=== PATIENT | female | born 1995 | race Caucasian/White ===

== ENCOUNTER 2017-03-12 21:01 | Emergency (ER) | payer OTHER ==
[2017-03-12 21:10] VITALS: O2SAT 97
[2017-03-12] MEDS ORDERED: NS 1,000 ML IV ONE (21:27)
[2017-03-12] MEDS ORDERED: fentaNYL 100 MCG/2 ML INJ IVP ONE (21:27)
--- NOTE | 2017-03-12 21:27 | EDPHY ---
H & P Time Seen by Provider: 03/12/17 21:15 HPI/ROS: CHIEF COMPLAINT: Right lower quadrant pain HISTORY OF PRESENT ILLNESS: Patient is a 21-year-old female who presents emergency department with right lower quadrant pain starting 1 and 0.5 hours ago. The patient states she has had mild nausea with no vomiting. No diarrhea. No fevers or chills. Normal appetite. No dysuria or frequency. Patient states that she played golf earlier today but did not noticed that she injured herself. She states her last menstrual period was yesterday in a month prior to that. She is on control. She has had no vaginal discharge. REVIEW OF SYSTEMS: My complete review of systems is negative except as mentioned in the HPI. Past Medical/Surgical History: Negative Past surgical history: Negative Social history: The patient is a student at [employer] Smoking Status: Never smoked Physical Exam: Vitals noted. Afebrile. GENERAL: Well-appearing, in no acute distress, alert. HEENT: Eyes normal to inspection, normal pharynx, no signs of dehydration. NECK: No thyromegaly, no lymphadenopathy, supple. RESPIRATORY: Clear to auscultation bilaterally, no rales, rhonchi or wheezing. CVS: Regular rate and rhythm, no rubs, murmurs, or gallops. ABDOMEN: Soft, mild right lower quadrant tenderness to palpation. No rebound or guarding. Nondistended, no organomegaly. BACK: Normal to inspection, no CVA tenderness. SKIN: Normal color, no rash, warm, dry. No pallor. EXTREMITIES: No pedal edema, no calf tenderness, no Homans sign or cords, no joint swelling. NEURO/PSYCH: Alert and oriented x3, normal mood and affect, normal motor sensory exam. No obvious cranial nerve deficit. Constitutional: Initial Vital Signs Temperature (C) 37 C 03/12/17 21:07 Heart Rate 70 03/12/17 21:07 Respiratory Rate 20 03/12/17 21:07 Blood Pressure 130/81 H 03/12/17 21:07 O2 Sat (%) 97 03/12/17 21:07 O2 Delivery Mode Room Air Allergies/Adverse Reactions: No Known Allergies Allergy (Unverified 03/12/17 21:06) Medical Decision Making - Diagnostics Imaging Results: Imaging Impressions Abdomen Ultrasound 03/12/17 21:28 Impression: 1. Normal pelvic ultrasound. 2. Normal ultrasound right lower quadrant with visualization of a normal appendix. Findings discussed with Brigitte Flores M.D. at 22:30 hour, 03/12/2017. Pelvic/Renal Ultrasound 03/12/17 21:28 Impression: 1. Normal pelvic ultrasound. 2. Normal ultrasound right lower quadrant with visualization of a normal appendix. Findings discussed with Brigitte Flores M.D. at 22:30 hour, 03/12/2017. ED Course/Re-evaluation: In the emergency department I discussed possible etiologies with the patient. I answered all her questions. Laboratory studies and ultrasound were ordered. Patient's CBC was unremarkable. White count was normal. Chemistry panel is unremarkable. is negative. Ultrasound of right lower quadrant and pelvis: Please refer the dictated report. I discussed the results with Dr. De Jesus. There is a normal appearing appendix. The ovaries normal. No torsion. On recheck the patient still mild right lower quadrant tenderness palpation. On repeat exam there was no rebound or guarding. Patient was given Toradol 30 mg IV and Percocet 2 tablets orally. I am awaiting UA results. Patient feels comfortable with the plan for discharge. The patient was given warnings prior to leaving. She is aware of the limitations of the studies thus far. She will be recheck tomorrow. If her symptoms worsen she will return sooner. Differential Diagnosis: My differential includes but is not limited to appendicitis, ovarian cyst, ovarian torsion, , ectopic , urinary tract infection, pyelonephritis, kidney stone, small-bowel obstruction, perforation - Data Points Laboratory Results: Laboratory Results 03/12/17 21:30 03/12/17 21:30 03/12/17 03/12/17 03/12/17 21:30 21:30 21:30 WBC RBC Hgb Hct MCV MCH MCHC RDW Plt Count MPV Neut % (Auto) Lymph % (Auto) [place] % (Auto) Eos % (Auto) Baso % (Auto) Nucleat RBC Rel Count Absolute Neuts (auto) Absolute Lymphs (auto) Absolute Monos (auto) Absolute Eos (auto) Absolute Basos (auto) Absolute Nucleated RBC Immature Gran % Immature Gran # Sodium 138 mEq/L mEq/L (134-144) Potassium 3.7 mEq/L mEq/L (3.5-5.2) Chloride 104 mEq/L mEq/L (97-110) Carbon Dioxide 22 mEq/l mEq/l (22-31) Anion Gap 12 mEq/L mEq/L (8-16) BUN 12 mg/dL mg/dL (7-23) Creatinine 0.8 mg/dL mg/dL (0.6-1.0) Estimated GFR > 60 Glucose 83 mg/dL mg/dL (70-100) Calcium 9.7 mg/dL mg/dL (8.5-10.4) Beta HCG, Qual NEGATIVE Urine Color YELLOW Urine Appearance MODERATELY TURBID Urine pH 7.0 (5.0-7.5) Ur Specific [place] 1.014 (1.002-1.030) Urine Protein NEGATIVE (NEGATIVE) Urine Ketones NEGATIVE (NEGATIVE) Urine Blood NEGATIVE (NEGATIVE) Urine Nitrate NEGATIVE (NEGATIVE) Urine Bilirubin NEGATIVE (NEGATIVE) Urine Urobilinogen NEGATIVE EU EU (0.2-1.0) Ur Leukocyte Esterase NEGATIVE (NEGATIVE) Urine RBC Pending Urine WBC Pending Ur Epithelial Cells Pending Urine Glucose NEGATIVE (NEGATIVE) 03/12/17 21:30 WBC 8.45 10^3/uL 10^3/uL (3.80-9.50) RBC 4.58 10^6/uL 10^6/uL (4.18-5.33) Hgb 13.9 g/dL g/dL (12.6-16.3) Hct 41.9 % % (38.0-47.0) MCV 91.5 fL fL (81.5-99.8) MCH 30.3 pg pg (27.9-34.1) MCHC 33.2 g/dL g/dL (32.4-36.7) RDW 12.6 % % (11.5-15.2) Plt Count 322 10^3/uL 10^3/uL (150-400) MPV 9.8 fL fL (8.7-11.7) Neut % (Auto) 29.9 % L % (39.3-74.2) Lymph % (Auto) 54.9 % H % (15.0-45.0) [place] % (Auto) 10.7 % % (4.5-13.0) Eos % (Auto) 3.8 % % (0.6-7.6) Baso % (Auto) 0.6 % % (0.3-1.7) Nucleat RBC Rel Count 0.0 % % (0.0-0.2) Absolute Neuts (auto) 2.53 10^3/uL 10^3/uL (1.70-6.50) Absolute Lymphs (auto) 4.64 10^3/uL H 10^3/uL (1.00-3.00) Absolute Monos (auto) 0.90 10^3/uL H 10^3/uL (0.30-0.80) Absolute Eos (auto) 0.32 10^3/uL 10^3/uL (0.03-0.40) Absolute Basos (auto) 0.05 10^3/uL 10^3/uL (0.02-0.10) Absolute Nucleated RBC 0.00 10^3/uL 10^3/uL (0-0.01) Immature Gran % 0.1 % % (0.0-1.1) Immature Gran # 0.01 10^3/uL 10^3/uL (0.00-0.10) Sodium Potassium Chloride Carbon Dioxide Anion Gap BUN Creatinine Estimated GFR Glucose Calcium Beta HCG, Qual Urine Color Urine Appearance Urine pH Ur Specific [place] Urine Protein Urine Ketones Urine Blood Urine Nitrate Urine Bilirubin Urine Urobilinogen Ur Leukocyte Esterase Urine RBC Urine WBC Ur Epithelial Cells Urine Glucose Medications Given: Discontinued Medications Fentanyl (Sublimaze) 50 mcg IVP EDNOW ONE Stop: 03/12/17 21:28 Last Admin: 03/12/17 22:24 Dose: 50 mcg Sodium Chloride (Ns) 1,000 mls @ 0 mls/hr IV EDNOW ONE; Wide Open PRN Reason: Protocol Stop: 03/12/17 21:28 Last Admin: 03/12/17 21:51 Dose: 1,000 mls Ketorolac Tromethamine (Toradol) 30 mg IVP EDNOW ONE Stop: 03/12/17 22:46 Last Admin: 03/12/17 22:47 Dose: 30 mg Oxycodone/Acetaminophen (Percocet 5/325) 2 tab PO EDNOW ONE Stop: 03/12/17 22:46 Last Admin: 03/12/17 22:47 Dose: 1 tab Departure - Departure Disposition: Home, Routine, Self-Care Clinical Impression: Abdominal pain Qualifiers: Abdominal location: right lower quadrant Qualified Code(s): R10.31 - Right lower quadrant pain Condition: Good Instructions: Abdominal Pain (ED) Additional Instructions: Your ultrasound showed a normal appendix and ovary. However, there are limitations to our imaging and laboratory studies. If you have increasing pain , fever, vomiting or any other concerns you need to return to the emergency department. Referrals: GUALBERTO BAKER [Other] - 1 day without fail KAREN Case,. [Clinic] - 1 day without fail
[2017-03-12 21:34] LABS: % IMMATURE GRANULYOCYTES 0.1 % (0.0-1.1); ABSOLUTE IMMATURE GRANULOCYTES 0.01 10^3/uL (0.00-0.10); ADD DIFF? NO; ADD MORPH? NO; ADD SCAN? NO; ATYPICAL LYMPHOCYTE FLAG 30 (0-99); FRAGMENT RBC FLAG 0 (0-99); HEMATOCRIT 41.9 % (38.0-47.0); HEMOGLOBIN 13.9 g/dL (12.6-16.3); LEFT SHIFT FLG 0 (0-99); LIPEMIA HEMOLYSIS FLAG 80 (0-99); MEAN CELL HEMOGLOBIN 30.3 pg (27.9-34.1); MEAN CELL HEMOGLOBIN CONCENTR. 33.2 g/dL (32.4-36.7); MEAN CELL VOLUME 91.5 fL (81.5-99.8); MEAN PLATELET VOLUME 9.8 fL (8.7-11.7); PLATELET CLUMPS FLAG 0 (0-99); PLATELET COUNT 322 10^3/uL (150-400); RED BLOOD CELL COUNT 4.58 10^6/uL (4.18-5.33); RED CELL DISTRIBUTION WIDTH 12.6 % (11.5-15.2)
[2017-03-12 21:44] LABS: ANION GAP 12 mEq/L (8-16); CALCIUM 9.7 mg/dL (8.5-10.4); CARBON DIOXIDE 22 mEq/l (22-31); CHLORIDE 104 mEq/L (97-110); CREATININE 0.8 mg/dL (0.6-1.0); GLOMERULAR FILTRATION RATE > 60; GLUCOSE 83 mg/dL (70-100); POTASSIUM 3.7 mEq/L (3.5-5.2); SODIUM 138 mEq/L (134-144)
[2017-03-12 22:28] VITALS: RESP 16
[2017-03-12] MEDS ORDERED: OXYCODONE/APAP 5/325 TAB PO ONE (22:45)
[2017-03-12] MEDS ORDERED: KETOROLAC 30 MG/1 ML SDV IVP ONE (22:45)
[2017-03-12 22:52] LABS: COLOR YELLOW; LEUKOCYTE ESTERASE,URINE NEGATIVE (NEGATIVE); NITRITE,URINE NEGATIVE (NEGATIVE)
[2017-03-12] MEDS ORDERED: OXYCODONE/APAP 5/325MG PREPACK#4 BTL TAKEHOME ONE (23:04)
[2017-03-12 23:08] LABS: AMORPHOUS PRESENT /hpf (NONE-1+); BACTERIA 2+ /hpf (NONE SEEN); MUCUS TRACE /lpf (NONE-1+)
[2017-03-12 23:50] VITALS: BP 111/63; PULSE 77; TEMP 98.2
== END 2017-03-12 23:50 | disposition home or self-care (01) ==
DX: R10.31 Right lower quadrant pain (principal); E86.9 Volume depletion, unspecified
CPT/HCPCS: 96374; J0696; J1885; J3010